=== PATIENT | female | born 1980 | race Caucasian/White ===

== ENCOUNTER 2016-10-25 19:25 | Emergency (ER) | payer OTHER ==
[2016-10-25 19:56] LABS: ABSOLUTE BASOPHIL COUNT 0 /CUMM (0.0-0.2); ABSOLUTE EOSINOPHIL COUNT 0.1 /CUMM (0.0-0.7); ABSOLUTE GRANULOCYTE CT 4.1 /CUMM (1.4-6.5); ABSOLUTE MONOCYTE COUNT 0.4 /CUMM (0.10-0.60); BASOPHIL % 0.5 % (0.0-2.0); EOSINOPHIL % 1.6 % (0-5); GRANULOCYTE % 61.4 % (42.2-75.2); HEMATOCRIT 35.9 % (37-47); MEAN CORPUSCULAR HGB 28.2 PG (27.0-31.0); MEAN CORPUSCULAR HGB CONC 33.4 G/DL (33.0-37.0); MEAN CORPUSCULAR VOLUME 84.3 FL (81.0-99.0); MEAN PLATELET VOLUME 8.5 FL (7.4-10.4); PLATELET COUNT 216 /CUMM (130-400); RBC DISTRIBUTION WIDTH 12.9 % (11.5-14.5); RED BLOOD CELL CT 4.25 /CUMM (4.20-5.40); WHITE BLOOD CELL COUNT 6.7 /CUMM (4.8-10.8)
[2016-10-25] MEDS ORDERED: LIOTHYRONINE SO5 MC1 PO (20:34)
[2016-10-25] MEDS ORDERED: LEVOTHYROXINE50 MCG PO (20:34)
[2016-10-25] MEDS ORDERED: VITAMIN D250000 UNIT PO (20:35)
--- NOTE | 2016-10-25 20:37 | ED CARDIAC/CP/PALPITATIONS ---
History of Present Illness General Chief Complaint: Chest Pain Stated Complaint: CP, HIGH BLOOD PRESSURE Source: patient, family Exam Limitations: no limitations Vital Signs & Intake/Output Vital Signs & Intake/Output Vital Signs Date Time Temp Pulse Resp B/P Pulse O2 O2 Flow FiO2 Ox Delivery Rate 10/26 0257 96.8 65 18 131/68 97 Room Air 10/25 2301 97.5 64 18 178/90 98 Room Air Room Air 10/25 2300 97.3 64 18 178/90 10/25 2211 97.3 67 18 142/82 98 Room Air Room Air 10/25 2106 98.1 68 16 157/80 10/25 2104 68 157/80 10/254 76 167/89 10/25 1935 98.1 82 16 190/98 97 Room Air Allergies Coded Allergies: morphine (N/V 10/25/16) Reconcile Medications Ergocalciferol (Vitamin D2) (Vitamin D2) 50,000 UNIT CAPSULE 1 CAP PO Q2W SUPPLEMENT (Reported) Levothyroxine Sodium 50 MCG TABLET 1 TAB PO DAILY THYROID (Reported) Liothyronine Sodium 5 MCG TABLET 1 TAB PO DAILY THYROID (Reported) Triage Note: TRIAGE; PT TO ED C/O CP SINCE THIS AM, STATES HAS BEEN GETTING WROSE THROUGHOUT THE DAY. +NAUSEA. STATES HER BP WAS ELEVATED EARLIER IN THE AM FOR HER. CURRENTLY 190/98 MANUALLY IN TRIAGE. STATES SHE FEELS SOB WITH EXERTION. Triage Nurses Notes Reviewed? yes : No Patient currently breastfeeds: No HPI: 36-year-old female here with complaints of left-sided chest pain that radiates occasionally into the left arm shoulder region. This started earlier this morning around 9 or 10 AM while at rest. 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 She has no history of cardiac disease and only takes thyroid medication. She denies any pain in her upper back between her shoulder blades, the pain is a pressure sensation but occasionally it was sharp throughout the day causing her to feel lightheaded and it was severe at that time. She had approximately 3 episodes of this throughout the day. She has shortness of breath when she lies down it is improved with sitting up. She has no lower extremity swelling or edema, no hormonal placement therapy, no prolonged periods of immobilization. No family history of cardiac disease. No history of hypertension. She has had increased stress in her life with the recent passing of her [id number]. (SHAY LYONS) Past History Travel History Traveled to [place] past 21 day No Medical History Any Pertinent Medical History? see below for history Endocrine: hypothyroidism REAL ESTATE LISTING CONSULTANT/Reproductive: [employer] Psychosocial History What is your primary language Spanish Tobacco Use: Never used (SHAY LYONS) Surgical History Surgical History: non-contributory Family History Hx Contributory? No (ESTHER ANTHONY MD) Review of Systems Review of Systems Constitutional: Reports: see HPI. EENTM: Reports: no symptoms. Respiratory: Reports: no symptoms. Cardiovascular: Reports: see HPI. GI: Reports: no symptoms. Genitourinary: Reports: no symptoms. Musculoskeletal: Reports: no symptoms. Skin: Reports: no symptoms. Neurological/Psychological: Reports: no symptoms. Hematologic/Endocrine: Reports: no symptoms. Immunologic/Allergic: Reports: no symptoms. All Other Systems: Reviewed and Negative (SHAY LYONS) Physical Exam Physical Exam Respiratory: normal breath sounds, chest non-tender, no respiratory distress Cardiovascular: regular rate/rhythm Gastrointestinal: normal bowel sounds Comments: Well-developed well-nourished no apparent distress. HEENT: Atraumatic, extraocular motion intact Neck: Supple, no lymphadenopathy, no bruits Back: Nontender Respiratory: No respiratory distress, chest is nontender, pain is not reproducible. Lungs are clear Extremities: No edema, full range of motion, negative Homans test, no swelling. Neuro: Alert and oriented x3 Psych: Mood affect normal, normal memory normal judgment. Skin: Warm and dry, no rash on exposed skin (SHAY LYONS) Core Measures ACS in differential dx? No Severe Sepsis Present: No Septic Shock Present: No (ESTHER ANTHONY MD) Progress Differential Diagnosis: AMI, aortic dissection, atrial fibrillation, cholecystitis, CHF/pulm edema, costochondritis, hyperkalemia, hypovolemia, hyperthyroid, hyperventilation, intracranial hemorrhage, musculoskeletal pain, myocarditis, pancreatitis, pericarditis, pneumonia, pneumothorax, PSVT, pulmonary embolism, PUD/GERD, PVCs/PACs, respiratory failure, rib fracture, sepsis, unstable angina, V-fib/V-Tach, WPW syndrome Plan of Care: Orders Procedure Date/time Status Add-on Test (ER Only) 10/25 2153 Active Saline Lock 10/25 2026 Active WESTERGREN SED RATE 10/25 1948 Complete C-REACTIVE PROTEIN 10/25 1948 Complete TROPONIN LEVEL 10/25 1934 Complete HUMAN BETA HCG SCREEN 10/25 1934 Complete COMPREHENSIVE METABOLIC PANEL 10/25 1934 Complete CBC WITHOUT DIFFERENTIAL 10/25 1934 Complete EKG 10/25 1925 Active Laboratory Tests 10/25/161948: Anion Gap 12, Estimated GFR > 60, BUN/Creatinine Ratio 20.0, Glucose 110 H, Calcium 9.9, Total Bilirubin 0.4, AST 33, ALT 51, Alkaline Phosphatase 65, Troponin I < 0.01, C-Reactive Prot, Quant < 0.5, Total Protein 7.6, Albumin 4.5, Globulin 3.1, Albumin/Globulin Ratio 1.5, Total Beta HCG NEGATIVE, CBC w Diff NO MAN DIFF REQ, RBC 4.25, MCV 84.3, MCH 28.2, RDW 12.9, MPV 8.5, Gran % 61.4, Lymphocytes % 30.1, Monocytes % 6.4, Eosinophils % 1.6, Basophils % 0.5, Absolute Granulocytes 4.1, Absolute Lymphocytes 2.0, Absolute Monocytes 0.4, Absolute Eosinophils 0.1, Absolute Basophils 0, PUBS MCHC 33.4, ESR Westergren 7 Diagnostic Imaging: Viewed by Me: CT Scan. Discussed w/RAD: CT Scan. Radiology Impression: PATIENT: KARINA WILDER PRESENT AGE: 36 PATIENT ACCOUNT NO: [id number] : 80 LOCATION: [facility] ORDERING PHYSICIAN: SHAY MAYA SERVICE DATE: 10/25/16-2026 EXAM TYPE : CAT - CTA CHEST-AORTIC DISSECTION EXAMINATION: CT ANGIOGRAM OF THE CHEST WITH AND WITHOUT CONTRAST (AORTIC DISSECTION PROTOCOL) CLINICAL INFORMATION: Left- sided chest pain and elevated blood pressure (BP 190/110). Evaluate for aortic dissection. COMPARISON: No pertinent prior studies are available for comparison. TECHNIQUE: Prior to contrast administration, noncontrast localization images were obtained. Subsequently, multidetector volumetric imaging was performed from the thoracic inlet to below the diaphragms before and after the administration of 80 mL Omnipaque 350 intravenous contrast. No contrast reaction reported. Sagittal, coronal, and MIP oblique sagittal reformatted images were obtained on the CT workstation, uploaded to PACS, and reviewed. Total exam dose-length product 968 mGy-cm FINDINGS: PRECONTRAST: No crescentic foci of mural hyperdensity surrounding the thoracic aorta to suggest acute aortic intramural hematoma. Amorphous soft tissue within the anterior mediastinum is favored to represent minimal residual thymic tissue. POSTCONTRAST: QUALITY OF STUDY/ CONTRAST BOLUS: Adequate contrast opacification of the thoracic aorta. THORACIC AORTA: Normal caliber of the thoracic aorta, without aneurysmal dilatation. No centrally displaced intraluminal flaps to suggest aortic dissection. Questionable noncalcified plaque versus mural thickening along the periphery of the left subclavian artery at its origin, with approximately 40% luminal narrowing of the caliber of the vessel by NASCET criteria (series 5, image 101). There is also questionable mural thickening of the brachiocephalic and left common carotid arteries at their origin. The great vessels are otherwise patent and opacified by intravenous contrast. There are no centrally displaced intraluminal flaps within the great vessels to suggest dissection. PULMONARY ARTERIES: Adequate contrast opacification of the pulmonary arterial vasculature, without evidence of pulmonary embolism to the level of the subsegmental pulmonary arteries. LUNG: Well-expanded and clear without focal airspace consolidation. No pleural effusions or pneumothoraces are identified. Central airways are patent, without endobronchial obstructing lesions. PLEURA: No pleural effusions or pneumothoraces. MEDIASTINUM: Normal heart size, without significant pericardial effusion. Normal three-vessel branching of the aortic arch. Normal caliber of the thoracic aorta and main pulmonary artery. No significant mediastinal, hilar or axillary adenopathy. No evidence of septal bowing or right heart strain. CHEST WALL/AXILLA: No axillary or internal mammary lymphadenopathy. OSSEOUS STRUCTURES: No acute osseous abnormality. Normal alignment of the imaged thoracic spine. UPPER ABDOMEN: No acute findings within the upper abdomen. No reflux of contrast into the hepatic veins to suggest elevated right heart pressures. IMPRESSION: 1. Normal caliber of the thoracic aorta, without aneurysmal dilatation. No centrally displaced intraluminal flaps to suggest aortic dissection. No findings suggestive of acute aortic intramural hematoma on noncontrast images of the chest. 2. Approximately 40% luminal narrowing of the left subclavian artery at its origin by NASCET criteria. There is questionable soft plaque versus mural thickening along the periphery of the left subclavian artery, near its origin. There is also questionable mild mural thickening of the brachiocephalic trunk as well as the left common carotid arteries at their origins. These vessels are otherwise patent and opacified by intravenous contrast. Mural wall thickening is nonspecific but can be seen in the setting of an underlying vasculitis of the great vessels suggest Takayasu's arteritis. There are no visible aneurysms or pseudoaneurysms arising from the great vessels. 3. Adequate contrast opacification of the pulmonary arterial vasculature, without evidence of pulmonary embolism. This critical result was discussed with Dr. Shay Franklin at 9:52 PM on 10/25/2016 and it was ascertained that the content and urgency of the report was understood at the time of direct communication. DICTATED BY: JEROME GODFREY MD DATE/TIME DICTATED :10/25/162119 PROCESS CHEMIST:ROSIE Initial ED EKG: NSR, rate (80), NONSPECIFIC t-WAVE FLATTENING IN LEADS v3 AND v4 WHICH ARE UNCHANGED FROM HER PREVIOUS ekg Prior EKG: unchanged Rhythm Strip: normal sinus rhythm Comments: Blood pressure checked in both arms by myself at the bedside, 188/110. Pulses equal in both arms. We'll give 5 mg of Lopressor IV and obtained blood tests and CT of the chest, concern for aortic dissection. Patient's blood pressure responded nicely, 150/80. She is feeling more comfortable. Awaiting results of CT scan. Patient reevaluated again, discussed results of CT scan with radiologist, concern for takayasu arteritis and this was discussed with patient and Dr. Whitney compensation coordinator. Call placed to her primary care doctor, will require admission, possible biopsy. She is given 10 of Decadron IV and 25 mg of metoprolol XL for blood pressure control. She may need continued IV blood pressure management. Radiologist mentioned that they will have an over read in the morning by another radiologist to confirm findings. ESR and CRP added on, discussed with Dr. Anthony ER attending Geena Lange, rec transfer to facility with CT surgery/cardiac surgery. Geena pt, Dr Anthony, agrees to transfer. I called the Y access transfer line, spoke with Dr Wilder, accepted the patient to medical service. (KURT MAYA,SHAY) Departure Departure Disposition: [facility] (ACUTE) Condition: Stable Clinical Impression Primary Impression: Takayasu's arteritis Secondary Impressions: Hypertensive urgency Referrals: TEDDY DAVIS MD (PCP/Family) Departure Forms: Customer Survey General Discharge Information Admission Note Documentation of Exam: Documentation of any treatments & extenuating circumstances including Concerns Regarding Discharge (functional status, medication knowledge or non-compliance, living conditions, etc.) that warrant an admission rather than observation: pt with suspected takayasu arteritis, requires iv steroids, bp control, cardiology eval (geena whitney), possible biopsy. Radiology with have overread in the am for a second opinion. (SHAY LYONS) PA/INSTITUTIONAL AIDE Co-Sign Statement Statement: ED Attending supervision documentation- x I saw and evaluated the patient. I have also reviewed all the pertinent lab results and diagnostic results. I agree with the findings and the plan of care as documented in the PA's/INSTITUTIONAL AIDE's documentation. [] I have reviewed the ED Record and agree with the PA's/INSTITUTIONAL AIDE's documentation. [] Additions or exceptions (if any) to the PAs/INSTITUTIONAL AIDE's note and plan are summarized below: [] (ESTHER ANTHONY MD) Critical Care Note Critical Care Note Critical Care Time: 30-74 min (40) (ESTHER ANTHONY MD)
--- NOTE | 2016-10-25 21:57 | CT SCAN REPORT ---
EXAMINATION: CT ANGIOGRAM OF THE CHEST WITH AND WITHOUT CONTRAST (AORTIC DISSECTION PROTOCOL) CLINICAL INFORMATION: Left-sided chest pain and elevated blood pressure (BP 190/110). Evaluate for aortic dissection. COMPARISON: No pertinent prior studies are available for comparison. TECHNIQUE: Prior to contrast administration, noncontrast localization images were obtained. Subsequently, multidetector volumetric imaging was performed from the thoracic inlet to below the diaphragms before and after the administration of 80 mL Omnipaque 350 intravenous contrast. No contrast reaction reported. Sagittal, coronal, and MIP oblique sagittal reformatted images were obtained on the CT workstation, uploaded to PACS, and reviewed. Total exam dose-length product 968 mGy-cm FINDINGS: PRECONTRAST: No crescentic foci of mural hyperdensity surrounding the thoracic aorta to suggest acute aortic intramural hematoma. Amorphous soft tissue within the anterior mediastinum is favored to represent minimal residual thymic tissue. POSTCONTRAST: QUALITY OF STUDY/CONTRAST BOLUS: Adequate contrast opacification of the thoracic aorta. THORACIC AORTA: Normal caliber of the thoracic aorta, without aneurysmal dilatation. No centrally displaced intraluminal flaps to suggest aortic dissection. Questionable noncalcified plaque versus mural thickening along the periphery of the left subclavian artery at its origin, with approximately 40% luminal narrowing of the caliber of the vessel by NASCET criteria (series 5, image 101). There is also questionable mural thickening of the brachiocephalic and left common carotid arteries at their origin. The great vessels are otherwise patent and opacified by intravenous contrast. There are no centrally displaced intraluminal flaps within the great vessels to suggest dissection. PULMONARY ARTERIES: Adequate contrast opacification of the pulmonary arterial vasculature, without evidence of pulmonary embolism to the level of the subsegmental pulmonary arteries. LUNG: Well-expanded and clear without focal airspace consolidation. No pleural effusions or pneumothoraces are identified. Central airways are patent, without endobronchial obstructing lesions. PLEURA: No pleural effusions or pneumothoraces. MEDIASTINUM: Normal heart size, without significant pericardial effusion. Normal three-vessel branching of the aortic arch. Normal caliber of the thoracic aorta and main pulmonary artery. No significant mediastinal, hilar or axillary adenopathy. No evidence of septal bowing or right heart strain. CHEST WALL/AXILLA: No axillary or internal mammary lymphadenopathy. OSSEOUS STRUCTURES: No acute osseous abnormality. Normal alignment of the imaged thoracic spine. UPPER ABDOMEN: No acute findings within the upper abdomen. No reflux of contrast into the hepatic veins to suggest elevated right heart pressures. IMPRESSION: 1. Normal caliber of the thoracic aorta, without aneurysmal dilatation. No centrally displaced intraluminal flaps to suggest aortic dissection. No findings suggestive of acute aortic intramural hematoma on noncontrast images of the chest. 2. Approximately 40% luminal narrowing of the left subclavian artery at its origin by NASCET criteria. There is questionable soft plaque versus mural thickening along the periphery of the left subclavian artery, near its origin. There is also questionable mild mural thickening of the brachiocephalic trunk as well as the left common carotid arteries at their origins. These vessels are otherwise patent and opacified by intravenous contrast. Mural wall thickening is nonspecific but can be seen in the setting of an underlying vasculitis of the great vessels suggest Takayasu's arteritis. There are no visible aneurysms or pseudoaneurysms arising from the great vessels. 3. Adequate contrast opacification of the pulmonary arterial vasculature, without evidence of pulmonary embolism. This critical result was discussed with Dr. Shay Franklin at 9:52 PM on 10/25/2016 and it was ascertained that the content and urgency of the report was understood at the time of direct communication.
[2016-10-26 02:57] VITALS: BP 131/68
== END 2016-10-26 03:06 | disposition short-term general hospital (02) ==
LOC: ERH 19:25
PROVIDERS: Emergency Medicine
DX: R07.89 Other chest pain (principal); I77.6 Arteritis, unspecified; I10 Essential (primary) hypertension
CPT/HCPCS: 93005; 93010; 96374; 96375; 99291